=== PATIENT | male | born 1945 | race Caucasian/White ===

== ENCOUNTER 2017-09-11 12:09 | Inpatient (IN) | payer OTHER ==
[~2017-09-11] VITALS: Ht 172.7 cm; Wt 98.3 kg
[2017-09-11 13:06] LABS: HEMATOCRIT 37.1 % (38.0-50.0); HEMOGLOBIN 12.9 G/DL (12.5-16.6); MCH 32.4 PG (29.0-34.0); MCHC 34.8 G/DL (30.0-36.0); MCV 93.2 FL (86-99); PLATELET COUNT 241 K/uL (156-360); RBC DIS.WIDTH-CV 13.2 % (11.8-14.6); RBC DIS.WIDTH-SD 45.1 % (39-53); RED BLOOD COUNT 3.98 M/uL (4.00-5.50); WHITE BLOOD COUNT 6.9 K/uL (4.1-10.2)
[2017-09-11 13:16] LABS: CHLORIDE 110 mEq/L (99-109); POTASSIUM 3.5 mEq/L (3.7-5.4); SODIUM 142 mEq/L (136-147)
[2017-09-11 13:18] LABS: GLUCOSE 254 mg/dL (70-99)
[2017-09-11 13:22] LABS: CREATININE 1.1 mg/dL (0.6-1.3); GFR ESTIMATE (CALCULATED) > 59 mL/min/ (58.99-99999)
[2017-09-11 13:23] LABS: UREA NITROGEN (BUN) 21 mg/dL (9-23)
[2017-09-11 13:25] LABS: TROP-I INTERPRETATION NEGATIVE; TROPONIN-I 0.02 ng/mL (0.0-0.30)
[2017-09-11 17:42] LABS: TROP-I INTERPRETATION NEGATIVE; TROPONIN-I 0.06 ng/mL (0.0-0.30)
[2017-09-11] MEDS ORDERED: ATORVASTATIN CA40 MG PO (19:49)
[2017-09-11] MEDS ORDERED: CLARITIN,ALAVAR10 MG PO (19:49)
[2017-09-11] MEDS ORDERED: FENOFIBRATE160 M1 PO (19:50)
[2017-09-11] MEDS ORDERED: CITALOPRAM HBR20 MG PO (19:50)
[2017-09-11] MEDS ORDERED: VALSARTAN320 MG PO (19:50)
[2017-09-11] MEDS ORDERED: AMLODIPINE BESYL5 MG PO (19:51)
[2017-09-11] MEDS ORDERED: ALLOPURINOL300 MG PO (19:51)
[2017-09-11] MEDS ORDERED: LO-DOSE ASPIRIN81 M2 PO (19:52)
[2017-09-11 20:11] LABS: INTER. NORMALIZED RATIO 1.1
[2017-09-11 20:13] LABS: PTT 27.3 SEC (25-37)
[2017-09-11 22:20] VITALS: BP 123/83
[2017-09-12] VITALS (7 sets, daily range): BP systolic 106–128; BP diastolic 63–84
[2017-09-12 01:13] LABS: TROP-I INTERPRETATION NEGATIVE; TROPONIN-I 0.05 ng/mL (0.0-0.30)
[2017-09-12 02:12] LABS: INTER. NORMALIZED RATIO 1.1
[2017-09-12 02:38] LABS: PTT 56.6 SEC (25-37)
[2017-09-12 03:55] LABS: ALBUMIN 3.9 G/DL (3.2-4.8); ALKALINE PHOSPHATASE 136 IU/L (3-129); ALT (GPT) 82 IU/L (3-49); AST (GOT) 53 IU/L (2-34); DIRECT BILIRUBIN 0.1 mg/dL (0.0-0.3); LIPASE 28 U/L (1.0-51.0); TOTAL BILIRUBIN 0.4 MG/DL (0.0-1.0); TOTAL PROTEIN 6.9 G/DL (6.4-8.3)
[2017-09-12 03:57] LABS: HDL CHOLESTEROL 21 MG/DL (Desirable>=40); LDL CHOLESTEROL 58 mg/dL (Desirable<100); NON-HDL CHOLESTEROL 115 mg/dL (Desirable<160); TOTAL CHOLESTEROL 136 mg/dL (Desirable<200)
[2017-09-12 03:58] LABS: TRIGLYCERIDES 283 MG/DL (Normal: <150)
[2017-09-12 06:03] LABS: HEMATOCRIT 35.7 % (38.0-50.0); HEMOGLOBIN 11.6 G/DL (12.5-16.6); MCH 30.8 PG (29.0-34.0); MCHC 32.5 G/DL (30.0-36.0); MCV 94.7 FL (86-99); PLATELET COUNT 234 K/uL (156-360); RBC DIS.WIDTH-CV 13.7 % (11.8-14.6); RBC DIS.WIDTH-SD 47.2 % (39-53); RED BLOOD COUNT 3.77 M/uL (4.00-5.50); WHITE BLOOD COUNT 7.1 K/uL (4.1-10.2)
[2017-09-12 06:17] LABS: TROP-I INTERPRETATION NEGATIVE; TROPONIN-I 0.04 ng/mL (0.0-0.30)
[2017-09-12 06:22] LABS: CHLORIDE 109 MEQ/L (99-109); CREATININE 0.9 MG/DL (0.6-1.3); GFR ESTIMATE (CALCULATED) > 59 mL/min/ (58.99-99999); POTASSIUM 3.9 MEQ/L (3.7-5.4); SODIUM 145 MEQ/L (136-147); UREA NITROGEN (BUN) 19 mg/dL (9-23)
[2017-09-12 06:23] LABS: GLUCOSE 112 mg/dL (70-99)
[2017-09-13 03:40] VITALS: BP 104/65
[2017-09-13 08:00] VITALS: BP 132/81
[2017-09-13 09:23] LABS: ALBUMIN 3.6 G/DL (3.2-4.8); ALKALINE PHOSPHATASE 122 IU/L (3-129); ALT (GPT) 61 IU/L (3-49); AST (GOT) 32 IU/L (2-34); DIRECT BILIRUBIN 0.1 mg/dL (0.0-0.3); TOTAL BILIRUBIN 0.4 MG/DL (0.0-1.0); TOTAL PROTEIN 6.3 G/DL (6.4-8.3)
[2017-09-13 11:48] VITALS: BP 124/72
[2017-09-13] MEDS ORDERED: ASPIRIN EC325 MG PO (13:34)
[2017-09-13] MEDS ORDERED: LOPRESSOR25 MG PO (13:38)
== END 2017-09-13 14:15 | disposition home or self-care (01) | DRG 287 ==
LOC: EME 12:09 → 4EAST 19:11 → EDOF 19:11 → CANRESERV 19:18 → ENRESERV 19:18 → 4EAST 22:15
PROVIDERS: Hospitalist; Internal Medicine; Internal Medicine Cardiovascular Disease; Physician Assistant
DX: I25.110 Atherosclerotic heart disease of native coronary artery with unstable angina pectoris (principal); I47.2 Ventricular tachycardia; I25.82 Chronic total occlusion of coronary artery; I10 Essential (primary) hypertension; K75.81 Nonalcoholic steatohepatitis (NASH); K80.20 Calculus of gallbladder without cholecystitis without obstruction; F41.9 Anxiety disorder, unspecified; E78.5 Hyperlipidemia, unspecified; E78.00 Pure hypercholesterolemia, unspecified; Z82.49 Family history of ischemic heart disease and other diseases of the circulatory system; E66.9 Obesity, unspecified; Z68.33 Body mass index [BMI] 33.0-33.9, adult; E87.6 Hypokalemia; R73.9 Hyperglycemia, unspecified; I24.9 Acute ischemic heart disease, unspecified
CPT/HCPCS: 71046; 71275; 78582; 80048; 80061; 80076; 83690; 83880; 84484; 85027; 85347; 85610; 85730; 93005; 99281; 99285; A9539; A9540; C1725; C1769; C1887; J1644; J2250; J3010; J3246; J7030